=== PATIENT | female | born 1960 | race Hispanic/Latino ===

== ENCOUNTER → 2021-04-12 | Outpatient (CLI) | payer MEDICARE ==
[2021-04-11 10:26] LABS: HEMOGLOBIN 9.8 g/dL (12.0-16.0)
[2021-04-11 10:45] LABS: INR 0.87; PROTHROMBIN TIME 12.5 seconds (11.9-14.5)
[2021-04-11 10:46] LABS: PARTIAL THROMBOPLASTIN TIME 41.4 seconds (23.8-35.5)
[2021-04-12] VITALS (9 sets, daily range): BP systolic 125–157; BP diastolic 53–88
[~2021-04-12] MED LIST: CEFTRIAXONE 1 GM VIAL ONE; CEFTRIAXONE SOD 1 GM/50 ML BAG IV ONE; FENTANYL CITRATE/PF 100MCG/2 ML INJ ONE; IOPAMIDOL 300MG/ML 50ML INFUS..BTL IV ONE; LIDOCAINE HCL 2% LOCAL 20 ML VIAL ONE; MIDAZOLAM HCL 2 MG/2 ML VIAL ONE; SODIUM CHLORIDE 0.9% 500ML 1,000 ML ONE; SODIUM CHLORIDE 0.9% 50ML 50 ML ONE
== END ==
LOC: DX 07:51
PROVIDERS: ATTEND Urology
DX: Z43.6 Encounter for attention to other artificial openings of urinary tract (principal); Z20.822 Contact with and (suspected) exposure to COVID-19
CPT/HCPCS: 36415; 50389; 76942; 85014; 85049; 85610; 85730; J0696; J2001; J2250; J3010; J7040; Q9967; U0002; 50433

== ENCOUNTER → 2021-11-01 | Outpatient (CLI) | payer MEDICARE ==
[~2021-11-01] MED LIST changes: -CEFTRIAXONE 1 GM VIAL ONE; -CEFTRIAXONE SOD 1 GM/50 ML BAG IV ONE; +IOPAMIDOL 300MG/ML 100 ML INFUS..BTL IV ONE; -IOPAMIDOL 300MG/ML 50ML INFUS..BTL IV ONE; +LIDOCAINE HCL 1% LOCAL INJ 20 ML VIAL ONE; -LIDOCAINE HCL 2% LOCAL 20 ML VIAL ONE; +SODIUM CHLORIDE 0.9% 250ML 250 ML ONE; -SODIUM CHLORIDE 0.9% 500ML 1,000 ML ONE; -SODIUM CHLORIDE 0.9% 50ML 50 ML ONE
== END ==
LOC: DX 09:00
PROVIDERS: ATTEND Urology
DX: N13.30 Unspecified hydronephrosis (principal); Z20.822 Contact with and (suspected) exposure to COVID-19
CPT/HCPCS: 50431; C1769; C2625; J2001; J2250; J3010; J7050; Q9967; U0002; 50387; 99152; 99153

== ENCOUNTER 2021-11-22 11:51 | Emergency (ER) | payer MEDICARE ==
[~2021-11-22] VITALS: Ht 149.9 cm; Wt 77.1 kg
[2021-11-22 12:24] LABS: BASOPHILS % 0.1 % (0.0-1.0); HEMATOCRIT 34.9 % (34.2-44.1); LYMPHOCYTES # (AUTO) 1.1 (1.0-3.2); LYMPHOCYTES % 8.5 % (18.0-39.1); MEAN CORPUSCULAR HEMOGLOBIN 25.8 pg (28-32); MEAN CORPUSCULAR HGB CONC 31.5 g/dL (31-35); MEAN CORPUSCULAR VOLUME 81.9 fL (81-99); MONOCYTES # (AUTO) 0.4 (0.2-0.8); MONOCYTES % 2.7 % (4.4-11.3); NEUTROPHILS # (AUTO) 11.9 (2.1-6.9); NEUTROPHILS % 88.3 % (38.7-80.0); PLATELET COUNT 403 x10e3/uL (140-360); RED BLOOD COUNT 4.26 x10e6/uL (3.6-5.1); RED CELL DISTRIBUTION WIDTH 16.5 % (11.7-14.4)
[2021-11-22 12:32] LABS: ANION GAP 16.6 mmol/L (8-16); BLOOD UREA NITROGEN 30 mg/dL (7-26); BUN/CREATININE RATIO 19 (6-25); CALCIUM 8.9 mg/dL (8.4-10.2); CARBON DIOXIDE 21 mmol/L (22-29); CHLORIDE 107 mmol/L (98-107); GLUCOSE 111 mg/dL (74-118); POTASSIUM 4.6 mmol/L (3.5-5.1); SODIUM 140 mmol/L (136-145)
[2021-11-22 12:45] LABS: CLARITY,URINE TURBID (CLEAR); COLOR,URINE YELLOW (YELLOW); KETONES,URINE NEGATIVE (NEGATIVE); NITRITE,URINE NEGATIVE (NEGATIVE); PROTEIN,URINE DIPSTICK 1+ (NEGATIVE); URINE UROBILINOGEN 0.2 mg/dL (0.2 - 1)
[2021-11-22 12:46] LABS: BACTERIA,URINE FEW /HPF; EPITHELIAL CELLS,URINE FEW /LPF; LEUKOCYTE ESTERASE ,URINE LARGE (NEGATIVE); RBC,URINE >50 /HPF (0-5); WBC,URINE (MAN) >50 /HPF (0-5)
[2021-11-22] MEDS ORDERED: IOPAMIDOL 300MG/ML 100 ML INFUS..BTL IV ONE (13:09)
[2021-11-22] MEDS ORDERED: SODIUM CHLORIDE 0.9% 250ML 0 ML ONE (13:09)
[2021-11-22] MEDS ORDERED: CEFDINIR300 MG PO (13:29)
== END 2021-11-22 14:12 | disposition home or self-care (01) ==
LOC: ER 12:24
DX: Z43.6 Encounter for attention to other artificial openings of urinary tract (principal); N39.0 Urinary tract infection, site not specified; I10 Essential (primary) hypertension; E11.9 Type 2 diabetes mellitus without complications; E03.9 Hypothyroidism, unspecified; K21.9 Gastro-esophageal reflux disease without esophagitis; Z86.79 Personal history of other diseases of the circulatory system; Z85.89 Personal history of malignant neoplasm of other organs and systems
CPT/HCPCS: 0223U; 36415; 74176; 74470; 80048; 81001; 85025; 87086; 87186; 99284; J7050; Q9967

== ENCOUNTER → 2022-01-08 | Day surgery (SDC) | payer MEDICARE ==
[~2022-01-08] VITALS: Ht 149.9 cm; Wt 77.1 kg
[~2022-01-08] MED LIST changes: +CEFDINIR300 MG PO; +GENTAMICIN 120MG/NS 100ML 100 ML IV ONE
[2022-01-08 09:44] LABS: COLOR,URINE YELLOW (YELLOW)
[2022-01-08 09:45] LABS: CLARITY,URINE HAZY (CLEAR); KETONES,URINE NEGATIVE (NEGATIVE); LEUKOCYTE ESTERASE ,URINE SMALL (NEGATIVE); NITRITE,URINE POSITIVE (NEGATIVE); PROTEIN,URINE DIPSTICK 2+ (NEGATIVE); URINE UROBILINOGEN 0.2 mg/dL (0.2 - 1)
[2022-01-08 10:01] LABS: WBC,URINE (MAN) >50 /HPF (0-5)
[2022-01-08 10:02] LABS: BACTERIA,URINE MANY /HPF; EPITHELIAL CELLS,URINE MODERATE /LPF; RENAL EPITHELIAL CELLS,URINE RARE
[2022-01-08 10:59] LABS: BASOPHILS % 0.7 % (0.0-1.0); EOSINOPHILS % 0.7 % (0.0-6.0); HEMATOCRIT 27.7 % (34.2-44.1); HEMOGLOBIN 8.6 g/dL (12.0-16.0); LYMPHOCYTES % 22.9 % (18.0-39.1); MEAN CORPUSCULAR HEMOGLOBIN 27.3 pg (28-32); MEAN CORPUSCULAR VOLUME 87.9 fL (81-99); MONOCYTES # (AUTO) 0.2 (0.2-0.8); MONOCYTES % 3.8 % (4.4-11.3); NEUTROPHILS # (AUTO) 3.2 (2.1-6.9); NEUTROPHILS % 71.2 % (38.7-80.0); PLATELET COUNT 218 x10e3/uL (140-360); RED BLOOD COUNT 3.15 x10e6/uL (3.6-5.1); RED CELL DISTRIBUTION WIDTH 20.7 % (11.7-14.4)
[2022-01-08 11:14] LABS: INR 0.83; PROTHROMBIN TIME 12.2 seconds (11.9-14.5)
[2022-01-08 11:21] LABS: ALBUMIN 3.5 g/dL (3.5-5.0); ALBUMIN/GLOBULIN RATIO 0.9 (0.8-2.0); ANION GAP 15.9 mmol/L (8-16); CALCIUM 8.7 mg/dL (8.4-10.2); CREATININE, SERUM 1.62 mg/dL (0.57-1.11); POTASSIUM 4.9 mmol/L (3.5-5.1)
[2022-01-08 12:38] LABS: EOSINOPHILS % (MANUAL) 3 % (0-7); LYMPHOCYTES % (MANUAL) 22 % (19-48); METAMYELOCYTES % (MANUAL) 1 % (0-0); MONOCYTES % (MANUAL) 3 % (3.4-9.0); NEUTROPHILS % (MANUAL) 69 % (40-74)
[2022-01-08 12:39] LABS: ANISOCYTOSIS SLIGHT; PLATELET ESTIMATE ADEQUATE; PLATELET MORPHOLOGY COMMENT NORMAL
== END | disposition home or self-care (01) ==
LOC: ER 08:49 → OR 12:00 → ER 13:55
PROVIDERS: ATTEND Radiology Vascular & Interventional Radiology
DX: N13.5 Crossing vessel and stricture of ureter without hydronephrosis (principal); N39.0 Urinary tract infection, site not specified; C56.9 Malignant neoplasm of unspecified ovary; I10 Essential (primary) hypertension; E11.9 Type 2 diabetes mellitus without complications; E03.9 Hypothyroidism, unspecified; Z79.899 Other long term (current) drug therapy
CPT/HCPCS: 36415; 50431; 50435; 74176; 74470; 80053; 81001; 85025; 85610; 87086; 87186; 99284; C1769; J1580; J2001; J2250; J3010; J7050; Q9967; 50387; 99152; 99153

== ENCOUNTER 2022-04-16 10:35 | Emergency (ER) | payer MEDICARE ==
[~2022-04-16] VITALS: Ht 149.9 cm; Wt 77.1 kg
[~2022-04-16 10:35] MED LIST changes: -FENTANYL CITRATE/PF 100MCG/2 ML INJ ONE; -GENTAMICIN 120MG/NS 100ML 100 ML IV ONE; -IOPAMIDOL 300MG/ML 100 ML INFUS..BTL IV ONE; -LIDOCAINE HCL 1% LOCAL INJ 20 ML VIAL ONE; -MIDAZOLAM HCL 2 MG/2 ML VIAL ONE; -SODIUM CHLORIDE 0.9% 250ML 250 ML ONE
[2022-04-16] MEDS ORDERED: DIPHENHYDRAMINE HCL INJ 50 MG/ML VIAL IV STA (10:39)
[2022-04-16] MEDS ORDERED: IOPAMIDOL 300MG/ML 100 ML INFUS..BTL IV ONE (12:21)
[2022-04-16] MEDS ORDERED: LIDOCAINE HCL 1% LOCAL INJ 20 ML VIAL ONE (12:22)
[2022-04-16] MEDS ORDERED: SODIUM CHLORIDE 0.9% 250ML 250 ML ONE ×2 (12:22→12:48)
== END 2022-04-16 13:43 | disposition home or self-care (01) ==
LOC: ER 10:40
DX: N99.528 Other complication of incontinent external stoma of urinary tract (principal); I10 Essential (primary) hypertension; E11.9 Type 2 diabetes mellitus without complications; E03.9 Hypothyroidism, unspecified; Y83.8 Other surgical procedures as the cause of abnormal reaction of the patient, or of later complication, without mention of misadventure at the time of the procedure; Z85.43 Personal history of malignant neoplasm of ovary; Z87.440 Personal history of urinary (tract) infections
CPT/HCPCS: 50431; 50435; 74470; 99284; J2001; J7050; Q9967; 50387; C1769; C2625

== ENCOUNTER → 2022-06-04 | Outpatient (CLI) | payer MEDICARE ==
[~2022-06-04] MED LIST changes: +IOPAMIDOL 300MG/ML 50ML INFUS..BTL IV ONE; +LIDOCAINE 1% 10 ML MULTIDOSE VIAL IJ ONE; +SODIUM CHLORIDE 0.9% 250ML 250 ML ONE
== END ==
LOC: DX 13:16
PROVIDERS: ATTEND Urology
DX: N13.30 Unspecified hydronephrosis (principal)
CPT/HCPCS: 50431; C1769; J7050; Q9967; 50387

== ENCOUNTER 2022-08-16 17:21 | Emergency (ER) | payer MEDICARE ==
[~2022-08-16] VITALS: Ht 149.9 cm; Wt 77.1 kg
[~2022-08-16 17:21] MED LIST changes: -IOPAMIDOL 300MG/ML 50ML INFUS..BTL IV ONE; -LIDOCAINE 1% 10 ML MULTIDOSE VIAL IJ ONE; -SODIUM CHLORIDE 0.9% 250ML 250 ML ONE
[2022-08-16 18:21] LABS: CLARITY,URINE CLEAR (CLEAR); COLOR,URINE YELLOW (YELLOW); KETONES,URINE NEGATIVE (NEGATIVE); LEUKOCYTE ESTERASE ,URINE 1+ (NEGATIVE); NITRITE,URINE POSITIVE (NEGATIVE); PROTEIN,URINE DIPSTICK 1+ (NEGATIVE); URINE UROBILINOGEN 0.2 mg/dL (0.2 - 1)
[2022-08-16 18:25] LABS: BACTERIA,URINE MANY /HPF; EPITHELIAL CELLS,URINE FEW /LPF; TRANSITIONAL EPI CELLS,URINE FEW; WBC,URINE (MAN) >50 /HPF (0-5)
[2022-08-16 18:26] LABS: RBC,URINE 21-50 /HPF (0-5)
[2022-08-16] MEDS ORDERED: CEFDINIR300 MG PO (18:52)
== END 2022-08-16 18:57 | disposition home or self-care (01) ==
LOC: ER 17:35
DX: R30.0 Dysuria (principal); N39.0 Urinary tract infection, site not specified; R10.30 Lower abdominal pain, unspecified; I10 Essential (primary) hypertension; E11.9 Type 2 diabetes mellitus without complications; E03.9 Hypothyroidism, unspecified; K21.9 Gastro-esophageal reflux disease without esophagitis; Z85.43 Personal history of malignant neoplasm of ovary
CPT/HCPCS: 81001; 87086; 99283

== ENCOUNTER → 2022-08-26 | Outpatient (CLI) | payer MEDICARE ==
[~2022-08-26] MED LIST changes: +CEFTRIAXONE 1 GM VIAL ONE; +FENTANYL CITRATE/PF 100MCG/2 ML INJ ONE; +LIDOCAINE HCL 1% 30ML-PF VIAL ONE; +SODIUM CHLORIDE 0.9% 100 ML ONE; +SODIUM CHLORIDE 0.9% 250ML 250 ML ONE
== END ==
LOC: DX 13:07
PROVIDERS: ATTEND Urology
DX: N13.30 Unspecified hydronephrosis (principal)
CPT/HCPCS: 50431; C2625; J0696; J2001; J3010; J7050 ×2; 50387

== ENCOUNTER 2022-10-21 09:28 | Observation (INO) | payer MEDICARE ==
[~2022-10-21] VITALS: Ht 149.9 cm; Wt 77.1 kg
[~2022-10-21 09:28] MED LIST changes: -CEFTRIAXONE 1 GM VIAL ONE; -FENTANYL CITRATE/PF 100MCG/2 ML INJ ONE; -LIDOCAINE HCL 1% 30ML-PF VIAL ONE; -SODIUM CHLORIDE 0.9% 100 ML ONE; -SODIUM CHLORIDE 0.9% 250ML 250 ML ONE
[2022-10-21 11:14] LABS: BASOPHILS % 0.7 % (0.0-1.0); EOSINOPHILS % 0.7 % (0.0-6.0); HEMOGLOBIN 9.4 g/dL (12.0-16.0); LYMPHOCYTES # (AUTO) 1.3 (1.0-3.2); LYMPHOCYTES % 28.7 % (18.0-39.1); MEAN CORPUSCULAR HEMOGLOBIN 30.9 pg (28-32); MEAN CORPUSCULAR HGB CONC 32.4 g/dL (31-35); MEAN CORPUSCULAR VOLUME 95.4 fL (81-99); MONOCYTES # (AUTO) 0.8 (0.2-0.8); MONOCYTES % 18.2 % (4.4-11.3); NEUTROPHILS # (AUTO) 2.3 (2.1-6.9); PLATELET COUNT 271 x10e3/uL (140-360); RED BLOOD COUNT 3.04 x10e6/uL (3.6-5.1); RED CELL DISTRIBUTION WIDTH 13.8 % (11.7-14.4)
[2022-10-21 11:31] LABS: INR 0.86; PROTHROMBIN TIME 12.2 seconds (11.9-14.5)
[2022-10-21 11:32] LABS: PARTIAL THROMBOPLASTIN TIME 34.8 seconds (23.8-35.5)
[2022-10-21 11:39] LABS: ALBUMIN 3.6 g/dL (3.5-5.0); ALBUMIN/GLOBULIN RATIO 1.1 (0.8-2.0); ANION GAP 14.3 mmol/L (8-16); CALCIUM 8.9 mg/dL (8.4-10.2); CREATININE, SERUM 1.88 mg/dL (0.57-1.11); POTASSIUM 4.3 mmol/L (3.5-5.1)
[2022-10-21] MEDS ORDERED: SODIUM CHLORIDE 0.9% 1000ML 1,000 ML IV SCH (12:15)
[2022-10-21] MEDS ORDERED: ONDANSETRON HCL INJ 2MG/ML 2ML 2 MG/ML VIAL IV PRN (12:15)
[2022-10-21 13:46] LABS: CLARITY,URINE SL CLOUDY (CLEAR); COLOR,URINE YELLOW (YELLOW); KETONES,URINE NEGATIVE (NEGATIVE); LEUKOCYTE ESTERASE ,URINE SMALL (NEGATIVE); NITRITE,URINE POSITIVE (NEGATIVE); PROTEIN,URINE DIPSTICK 2+ (NEGATIVE); URINE UROBILINOGEN 0.2 mg/dL (0.2 - 1)
[2022-10-21 13:50] LABS: WBC,URINE (MAN) 21-50 /HPF (0-5)
[2022-10-21 13:51] LABS: BACTERIA,URINE FEW /HPF; EPITHELIAL CELLS,URINE RARE /LPF
[2022-10-21 14:00] VITALS: BP 124/77; PULSE 62; RESP 20; TEMP 98.4; O2SAT 98
[2022-10-21] MEDS: SODIUM CHLORIDE 0.9% 1000ML 1,000 ML IV SCH ×2 (14:15→23:45)
[2022-10-21 14:49] VITALS: BP 124/77; PULSE 75; RESP 18; TEMP 98.2; O2SAT 98
[2022-10-21 14:56] VITALS: BP 124/77; PULSE 66; RESP 18; TEMP 98.5; O2SAT 98
[2022-10-21 17:49] VITALS: BP 124/77; PULSE 66; RESP 20; TEMP 98.5; O2SAT 99
[2022-10-21 20:00] VITALS: BP 126/54; PULSE 62; RESP 20; TEMP 97.7; O2SAT 100
[2022-10-21 20:21] VITALS: BP 126/54; PULSE 62; RESP 19; TEMP 97.7; O2SAT 100
[2022-10-21] MEDS ORDERED: TRADJENTA5 MG PO (23:05)
[2022-10-21] MEDS ORDERED: CRESTOR10 MG PO (23:07)
[2022-10-21] MEDS ORDERED: INDERAL XL80 MG PO (23:13)
[2022-10-21] MEDS ORDERED: HYDRALAZINE HCL50 MG PO (23:15)
[2022-10-21] MEDS ORDERED: OXYBUTYNIN CHLOR5 M1 PO (23:16)
[2022-10-21] MEDS ORDERED: GABAPENTIN300 MG PO (23:17)
[2022-10-21] MEDS ORDERED: AMLODIPINE BESY10 MG PO (23:18)
[2022-10-21] MEDS ORDERED: LEVOTHYROXINE75 MCG PO (23:20)
[2022-10-21] MEDS ORDERED: MORPHINE SULFAT30 M2 PO (23:22)
[2022-10-22 00:34] VITALS: BP 170/61; PULSE 65; RESP 19; TEMP 98.4; O2SAT 100
[2022-10-22 04:23] VITALS: BP 156/64; PULSE 65; RESP 17; TEMP 98; O2SAT 98
[2022-10-22 05:23] LABS: BASOPHILS % 0.8 % (0.0-1.0); EOSINOPHILS % 0.8 % (0.0-6.0); HEMATOCRIT 29.7 % (34.2-44.1); HEMOGLOBIN 9.4 g/dL (12.0-16.0); LYMPHOCYTES # (AUTO) 1.4 (1.0-3.2); LYMPHOCYTES % 27.6 % (18.0-39.1); MEAN CORPUSCULAR HEMOGLOBIN 30.9 pg (28-32); MEAN CORPUSCULAR HGB CONC 31.6 g/dL (31-35); MEAN CORPUSCULAR VOLUME 97.7 fL (81-99); MONOCYTES # (AUTO) 0.6 (0.2-0.8); MONOCYTES % 12.2 % (4.4-11.3); NEUTROPHILS % 58.2 % (38.7-80.0); PLATELET COUNT 251 x10e3/uL (140-360); RED BLOOD COUNT 3.04 x10e6/uL (3.6-5.1); RED CELL DISTRIBUTION WIDTH 13.7 % (11.7-14.4)
[2022-10-22 05:47] LABS: ALBUMIN 3.6 g/dL (3.5-5.0); ALBUMIN/GLOBULIN RATIO 1.1 (0.8-2.0); ANION GAP 14.1 mmol/L (8-16); CALCIUM 8.9 mg/dL (8.4-10.2); CREATININE, SERUM 1.46 mg/dL (0.57-1.11); POTASSIUM 4.1 mmol/L (3.5-5.1)
[2022-10-22] MEDS: SODIUM CHLORIDE 0.9% 1000ML 1,000 ML IV SCH (06:54)
[2022-10-22 08:00] VITALS: BP 156/64; PULSE 65; RESP 17; TEMP 98; O2SAT 98
[2022-10-22 08:44] VITALS: BP 161/64; PULSE 61; RESP 19; TEMP 98.5; O2SAT 98
[2022-10-22 09:00] VITALS: BP 161/64; PULSE 61; RESP 19; TEMP 98.5; O2SAT 98
[2022-10-22 11:30] VITALS: BP 135/52; PULSE 62; RESP 19; TEMP 98.4; O2SAT 100
[2022-10-22] MEDS ORDERED: SODIUM CHLORIDE 0.9% 250ML 250 ML ONE (11:31)
[2022-10-22] MEDS ORDERED: IOPAMIDOL 370 MG/ML 100 ML INFUS..BTL INJ ONE (11:31)
[2022-10-22] MEDS ORDERED: LIDOCAINE HCL 1% LOCAL INJ 20 ML VIAL ONE (11:31)
[2022-10-22] MEDS ORDERED: FENTANYL CITRATE/PF 100MCG/2 ML INJ ONE (12:20)
[2022-10-22] MEDS ORDERED: MORPHINE SULFATE IR 15 MG TABLET PO PRN (14:00)
[2022-10-22] MEDS ORDERED: HYDRALAZINE HCL 25 MG TAB PO SCH (15:00)
[2022-10-22] MEDS ORDERED: GABAPENTIN 300 MG CAP PO SCH (15:00)
[2022-10-22] MEDS ORDERED: NON-FORMULARY MEDICATION (Hydralazine Hcl* 50 MG) PO SCH (15:00)
[2022-10-23] MEDS ORDERED: LEVOTHYROXINE SODIUM 75 MCG TAB PO SCH (06:00)
[2022-10-23] MEDS ORDERED: PROPRANOLOL HCL 60 MG ER CAP PO SCH (09:00)
[2022-10-23] MEDS ORDERED: OXYBUTYNIN CHLORIDE XL 5 MG TAB PO SCH (09:00)
[2022-10-23] MEDS ORDERED: PROPRANOLOL HCL 120 MG PO SCH (09:00)
[2022-10-23] MEDS ORDERED: AMLODIPINE BESYLATE 10 MG TAB PO SCH (09:00)
[2022-10-23] MEDS ORDERED: (Linagliptin (Tradjenta) 5 MG) PO SCH (09:00)
[2022-10-23] MEDS ORDERED: SIMVASTATIN 20 MG TAB PO SCH (21:00)
== END 2022-10-22 15:12 | disposition home or self-care (01) ==
LOC: ER 09:34 → ERHOLD 12:16 → MED/SURG2 13:42
PROVIDERS: ADMIT Internal Medicine; ATTEND Internal Medicine
DX: N99.522 Malfunction of incontinent external stoma of urinary tract (principal); N13.5 Crossing vessel and stricture of ureter without hydronephrosis; I12.9 Hypertensive chronic kidney disease with stage 1 through stage 4 chronic kidney disease, or unspecified chronic kidney disease; N18.9 Chronic kidney disease, unspecified; E03.9 Hypothyroidism, unspecified; E66.9 Obesity, unspecified; Z20.822 Contact with and (suspected) exposure to COVID-19; Z79.899 Other long term (current) drug therapy; Z87.440 Personal history of urinary (tract) infections; Z85.43 Personal history of malignant neoplasm of ovary
CPT/HCPCS: 36415 ×2; 50435; 74470; 80053 ×2; 81001; 82948 ×2; 85025 ×2; 85610; 85730; 99284; C1769; C2625; G0378 ×2; J2001; J3010; J7030; J7050; Q9967; U0002; 50387; 50431

== ENCOUNTER → 2023-12-16 | Day surgery (SDC) | payer MEDICARE ==
[~2023-12-16] MED LIST changes: +AMLODIPINE BESY10 MG PO; +CEFTRIAXONE 1 GM VIAL ONE; +CEFUROXIME500 MG PO; +CRESTOR10 MG PO; +FENTANYL CITRATE/PF 100MCG/2 ML INJ ONE; +GABAPENTIN300 MG PO; +GEMTESA75 MG PO; +GENTAMICIN 80MG/NS 100 ML 200 ML IV ONE; +HYDRALAZINE HC100 MG PO; +HYDRALAZINE HCL50 MG PO; +INDERAL XL80 MG PO; +IOPAMIDOL 610MG/1ML 300 MG/ML VIAL IV ONE; +LACTATED RINGER'S 1,000 ML ONE; +LEVOTHYROXINE75 MCG PO; +LIDOCAINE HCL 2% LOCAL INJ 5 ML SDV VIAL INJ ONE; +MIDAZOLAM HCL 2 MG/2 ML VIAL ONE; +MORPHINE PO; +MORPHINE SULFAT30 M2 PO; +ONDANSETRON HCL INJ 2MG/ML 2ML 2 MG/ML VIAL ONE; +OXYBUTYNIN CHLOR5 M1 PO; +PHENAZOPYRIDINE HCL 100 MG TAB ONE; +PROPOFOL IV EMULSION 10 MG/ML 20 ML VIAL ONE; +PROPRANOLOL HCL40 MG PO; +PYRIDIUM100 MG PO; +ROCURONIUM BROMIDE 10 MG/ML 5ML VIAL IV ONE; +SEVOFLURANE INHAL SOLN 250 ML PEN BTL ONE; +TRADJENTA5 MG PO; +TYLENOL EXTRA500 MG PO; +VESICARE5 MG PO; +VITAMIN D31250 MCG PO
[2023-12-16 10:04] LABS: BASOPHILS # (AUTO) 0.1 (0.0-0.1); BASOPHILS % 0.3 % (0.0-1.0); EOSINOPHILS # (AUTO) 0.3 (0.0-0.4); EOSINOPHILS % 1.1 % (0.0-6.0); HEMATOCRIT 30.2 % (34.2-44.1); LYMPHOCYTES # (AUTO) 2.2 (1.0-3.2); LYMPHOCYTES % 9.5 % (18.0-39.1); MEAN CORPUSCULAR HEMOGLOBIN 28.9 pg (28-32); MEAN CORPUSCULAR HGB CONC 29.8 g/dL (31-35); MEAN CORPUSCULAR VOLUME 97.1 fL (81-99); MONOCYTES # (AUTO) 1.4 (0.2-0.8); NEUTROPHILS # (AUTO) 19.3 (2.1-6.9); NEUTROPHILS % 82.6 % (38.7-80.0); PLATELET COUNT 569 x10e3/uL (140-360); RED BLOOD COUNT 3.11 x10e6/uL (3.6-5.1); RED CELL DISTRIBUTION WIDTH 14.7 % (11.7-14.4); WHITE BLOOD COUNT 23.33 x10e3/uL (4.8-10.8)
[2023-12-16 10:28] LABS: ALBUMIN/GLOBULIN RATIO 0.6 (0.8-2.0); ANION GAP 15.6 mmol/L (8-16); BILIRUBIN,TOTAL 0.3 mg/dL (0.2-1.2); CALCIUM 9.8 mg/dL (8.4-10.2); CREATININE, SERUM 2.19 mg/dL (0.57-1.11); POTASSIUM 3.6 mmol/L (3.5-5.1); TOTAL PROTEIN 8.3 g/dL (6.5-8.1)
[2023-12-16] MEDS: PHENAZOPYRIDINE HCL 100 MG TAB PO ONE (15:30)
[2023-12-16 16:00] VITALS: BP 152/60; PULSE 68; RESP 18; O2SAT 99
[2023-12-16] MEDS: ACETAMINOPHEN/CODEINE 300MG - 30MG TAB ONE (16:08)
== END | disposition home or self-care (01) ==
LOC: OR 09:14
PROVIDERS: ATTEND Urology
DX: Z46.6 Encounter for fitting and adjustment of urinary device (principal); N13.5 Crossing vessel and stricture of ureter without hydronephrosis; N13.30 Unspecified hydronephrosis; N81.10 Cystocele, unspecified; N81.6 Rectocele; N95.2 Postmenopausal atrophic vaginitis; N39.0 Urinary tract infection, site not specified; C80.1 Malignant (primary) neoplasm, unspecified; I10 Essential (primary) hypertension; E11.9 Type 2 diabetes mellitus without complications; E03.9 Hypothyroidism, unspecified; K21.9 Gastro-esophageal reflux disease without esophagitis; Z79.84 Long term (current) use of oral hypoglycemic drugs; Z79.891 Long term (current) use of opiate analgesic; Z79.899 Other long term (current) drug therapy; Z86.73 Personal history of transient ischemic attack (TIA), and cerebral infarction without residual deficits; Z87.891 Personal history of nicotine dependence
CPT/HCPCS: 36415; 52332; 52344; 71046; 74420; 80053; 82948; 85025; 87086; 87186; 93005; C1758; C1769; C2617; J0696; J1580; J2001; J2250; J2405; J2704; J3010; J7121; Q9967

== ENCOUNTER 2024-02-11 15:35 | Inpatient (IN) | payer MEDICARE ==
[~2024-02-11] VITALS: Ht 149.9 cm; Wt 59.9 kg
[~2024-02-11 15:35] MED LIST changes: -CEFTRIAXONE 1 GM VIAL ONE; -FENTANYL CITRATE/PF 100MCG/2 ML INJ ONE; -GENTAMICIN 80MG/NS 100 ML 200 ML IV ONE; -IOPAMIDOL 610MG/1ML 300 MG/ML VIAL IV ONE; -LACTATED RINGER'S 1,000 ML ONE; -LIDOCAINE HCL 2% LOCAL INJ 5 ML SDV VIAL INJ ONE; -MIDAZOLAM HCL 2 MG/2 ML VIAL ONE; -ONDANSETRON HCL INJ 2MG/ML 2ML 2 MG/ML VIAL ONE; -PHENAZOPYRIDINE HCL 100 MG TAB ONE; -PROPOFOL IV EMULSION 10 MG/ML 20 ML VIAL ONE; -ROCURONIUM BROMIDE 10 MG/ML 5ML VIAL IV ONE; -SEVOFLURANE INHAL SOLN 250 ML PEN BTL ONE
[2024-02-11 16:13] LABS: BASOPHILS % 0.2 % (0.0-1.0); EOSINOPHILS # (AUTO) 0.2 (0.0-0.4); EOSINOPHILS % 1.2 % (0.0-6.0); HEMATOCRIT 25.2 % (34.2-44.1); HEMOGLOBIN 7.3 g/dL (12.0-16.0); LYMPHOCYTES # (AUTO) 1.8 (1.0-3.2); LYMPHOCYTES % 9.4 % (18.0-39.1); MEAN CORPUSCULAR HEMOGLOBIN 27.3 pg (28-32); MEAN CORPUSCULAR VOLUME 94.4 fL (81-99); MONOCYTES # (AUTO) 1.3 (0.2-0.8); NEUTROPHILS # (AUTO) 15.6 (2.1-6.9); NEUTROPHILS % 81.6 % (38.7-80.0); PLATELET COUNT 486 x10e3/uL (140-360); RED BLOOD COUNT 2.67 x10e6/uL (3.6-5.1); RED CELL DISTRIBUTION WIDTH 16.4 % (11.7-14.4)
[2024-02-11 16:39] LABS: ALBUMIN 2.5 g/dL (3.5-5.0); ALBUMIN/GLOBULIN RATIO 0.5 (0.8-2.0); ANION GAP 14.6 mmol/L (8-16); BILIRUBIN,TOTAL 0.3 mg/dL (0.2-1.2); CALCIUM 9.1 mg/dL (8.4-10.2); CREATININE, SERUM 2.46 mg/dL (0.57-1.11); POTASSIUM 4.6 mmol/L (3.5-5.1); TOTAL PROTEIN 7.3 g/dL (6.5-8.1)
[2024-02-11 16:58] LABS: INR 1.01; PROTHROMBIN TIME 13.8 seconds (11.9-14.5)
[2024-02-11] MEDS: HYDROCODONE/APAP 10MG-325MG TAB PO PRN (20:10)
[2024-02-11] MEDS: SODIUM CHLORIDE 0.9% 1000ML 1,000 ML IV SCH (20:10)
[2024-02-11 20:12] VITALS: PULSE 76; RESP 18; O2SAT 100
[2024-02-11 20:39] LABS: BILIRUBIN,URINE MODERATE (NEGATIVE); CLARITY,URINE TURBID (CLEAR); COLOR,URINE YELLOW (YELLOW); GLUCOSE, URINE NEGATIVE (NEGATIVE); KETONES,URINE NEGATIVE (NEGATIVE); LEUKOCYTE ESTERASE ,URINE LARGE (NEGATIVE); NITRITE,URINE NEGATIVE (NEGATIVE); PH,URINE 8.5 (5 - 7); PROTEIN,URINE DIPSTICK >=300 (NEGATIVE); URINE UROBILINOGEN 1 mg/dL (0.2 - 1)
[2024-02-11 20:54] LABS: AMORPHOUS SEDIMENT,URINE MODERATE (FEW); BACTERIA,URINE MODERATE /HPF; WBC,URINE (MAN) 21-50 /HPF (0-5)
[2024-02-12 05:24] LABS: BASOPHILS # (AUTO) 0.1 (0.0-0.1); BASOPHILS % 0.4 % (0.0-1.0); EOSINOPHILS # (AUTO) 0.3 (0.0-0.4); EOSINOPHILS % 1.5 % (0.0-6.0); LYMPHOCYTES # (AUTO) 1.4 (1.0-3.2); LYMPHOCYTES % 7.8 % (18.0-39.1); MEAN CORPUSCULAR HEMOGLOBIN 27.5 pg (28-32); MEAN CORPUSCULAR HGB CONC 29.3 g/dL (31-35); MEAN CORPUSCULAR VOLUME 94.1 fL (81-99); MONOCYTES # (AUTO) 1.1 (0.2-0.8); NEUTROPHILS # (AUTO) 15.1 (2.1-6.9); NEUTROPHILS % 83.7 % (38.7-80.0); PLATELET COUNT 570 x10e3/uL (140-360); RED BLOOD COUNT 2.36 x10e6/uL (3.6-5.1); RED CELL DISTRIBUTION WIDTH 16.6 % (11.7-14.4); WHITE BLOOD COUNT 18.02 x10e3/uL (4.8-10.8)
[2024-02-12 05:41] LABS: ANION GAP 15.1 mmol/L (8-16); CALCIUM 8.7 mg/dL (8.4-10.2); CREATININE, SERUM 2.34 mg/dL (0.57-1.11); POTASSIUM 4.1 mmol/L (3.5-5.1)
[2024-02-12 05:44] LABS: HEMATOCRIT 22.2 % (34.2-44.1)
[2024-02-12 05:45] LABS: HEMOGLOBIN 6.5 g/dL (12.0-16.0)
[2024-02-12 07:43] VITALS: PULSE 62; RESP 15; O2SAT 100
[2024-02-12] MEDS ORDERED: LIDOCAINE HCL 1% LOCAL INJ 20 ML VIAL ONE (08:54)
[2024-02-12] MEDS ORDERED: IOPAMIDOL 370 MG/ML 100 ML INFUS..BTL INJ ONE (08:55)
[2024-02-12] MEDS ORDERED: SODIUM CHLORIDE 0.9% 500ML 500 ML ONE (08:55)
[2024-02-12] MEDS ORDERED: SODIUM CHLORIDE 0.9% 250ML 250 ML ONE ×3 (09:25→18:31)
[2024-02-12] MEDS ORDERED: MIDAZOLAM HCL 2 MG/2 ML VIAL ONE (09:25)
[2024-02-12] MEDS ORDERED: FENTANYL CITRATE/PF 100MCG/2 ML INJ ONE (09:25)
[2024-02-12] MEDS: SODIUM CHLORIDE 0.9% 250ML 250 ML IV ONE (13:15)
[2024-02-12 14:14] VITALS: PULSE 60; RESP 16; O2SAT 100
[2024-02-12 15:50] VITALS: PULSE 66; RESP 16; TEMP 97.7
[2024-02-12] MEDS: FUROSEMIDE INJ 10 MG/ML 2 ML VIAL IV PRN (16:07)
[2024-02-12 20:55] VITALS: BP 132/54; PULSE 66; RESP 18; TEMP 97.6; O2SAT 100
[2024-02-12] MEDS: Morphine 4mg INJECTION 4 MG/ML INJ IV PRN (21:27)
[2024-02-13] VITALS (8 sets, daily range): BP systolic 110–142; BP diastolic 42–51; PULSE 55–74; RESP 17–20; TEMP 97.6–98.8; O2SAT 97–100
[2024-02-13 07:38] LABS: BASOPHILS # (AUTO) 0.1 (0.0-0.1); BASOPHILS % 0.4 % (0.0-1.0); EOSINOPHILS # (AUTO) 0.3 (0.0-0.4); HEMATOCRIT 31.2 % (34.2-44.1); HEMOGLOBIN 9.6 g/dL (12.0-16.0); LYMPHOCYTES # (AUTO) 1.4 (1.0-3.2); LYMPHOCYTES % 10.1 % (18.0-39.1); MEAN CORPUSCULAR HEMOGLOBIN 28.2 pg (28-32); MEAN CORPUSCULAR HGB CONC 30.8 g/dL (31-35); MEAN CORPUSCULAR VOLUME 91.5 fL (81-99); MONOCYTES # (AUTO) 1.2 (0.2-0.8); MONOCYTES % 8.6 % (4.4-11.3); NEUTROPHILS # (AUTO) 10.5 (2.1-6.9); NEUTROPHILS % 78.3 % (38.7-80.0); PLATELET COUNT 408 x10e3/uL (140-360); RED BLOOD COUNT 3.41 x10e6/uL (3.6-5.1); WHITE BLOOD COUNT 13.38 x10e3/uL (4.8-10.8)
[2024-02-13 08:01] LABS: ANION GAP 12.4 mmol/L (8-16); CALCIUM 8.3 mg/dL (8.4-10.2); CREATININE, SERUM 2.57 mg/dL (0.57-1.11); POTASSIUM 4.4 mmol/L (3.5-5.1)
[2024-02-14] VITALS (11 sets, daily range): BP systolic 120–148; BP diastolic 46–61; PULSE 55–89; RESP 16–20; TEMP 97.7–98.4; O2SAT 98–100
[2024-02-14] MEDS ORDERED: MAGNESIUM HYDROXIDE 30 ML UDC PO PRN (10:00)
[2024-02-14] MEDS: SENNA-S TABLET PO SCH (11:35)
[2024-02-15] VITALS (8 sets, daily range): BP systolic 127–159; BP diastolic 50–79; PULSE 57–68; RESP 17–19; TEMP 97–99.1; O2SAT 97–100
[2024-02-16] VITALS (7 sets, daily range): BP systolic 149–161; BP diastolic 47–68; PULSE 54–65; RESP 16–20; TEMP 98–100.3; O2SAT 100
[2024-02-16] MEDS: ACETAMINOPHEN 325 MG TAB PO PRN (01:05)
[2024-02-16 05:59] LABS: BASOPHILS # (AUTO) 0.1 (0.0-0.1); BASOPHILS % 0.5 % (0.0-1.0); EOSINOPHILS # (AUTO) 0.3 (0.0-0.4); EOSINOPHILS % 3.1 % (0.0-6.0); HEMOGLOBIN 9.5 g/dL (12.0-16.0); LYMPHOCYTES # (AUTO) 1.3 (1.0-3.2); LYMPHOCYTES % 13.3 % (18.0-39.1); MEAN CORPUSCULAR HEMOGLOBIN 28.3 pg (28-32); MEAN CORPUSCULAR HGB CONC 30.6 g/dL (31-35); MEAN CORPUSCULAR VOLUME 92.3 fL (81-99); MONOCYTES # (AUTO) 0.9 (0.2-0.8); MONOCYTES % 8.6 % (4.4-11.3); NEUTROPHILS # (AUTO) 7.4 (2.1-6.9); NEUTROPHILS % 74.1 % (38.7-80.0); PLATELET COUNT 367 x10e3/uL (140-360); RED BLOOD COUNT 3.36 x10e6/uL (3.6-5.1); RED CELL DISTRIBUTION WIDTH 16.9 % (11.7-14.4); WHITE BLOOD COUNT 10.04 x10e3/uL (4.8-10.8)
[2024-02-16 06:47] LABS: ANION GAP 11.7 mmol/L (8-16); CALCIUM 7.8 mg/dL (8.4-10.2); CREATININE, SERUM 1.5 mg/dL (0.57-1.11); POTASSIUM 3.7 mmol/L (3.5-5.1)
[2024-02-16] MEDS ORDERED: LIDOCAINE HCL 1% LOCAL INJ 20 ML VIAL ONE (11:52)
[2024-02-16] MEDS ORDERED: IOPAMIDOL 370 MG/ML 100 ML INFUS..BTL INJ ONE (11:53)
[2024-02-16] MEDS ORDERED: SODIUM CHLORIDE 0.9% 250ML 250 ML ONE (11:53)
[2024-02-16] MEDS ORDERED: FENTANYL CITRATE/PF 100MCG/2 ML INJ ONE (13:31)
[2024-02-17] VITALS (7 sets, daily range): BP systolic 99–165; BP diastolic 50–72; PULSE 58–84; RESP 17–18; TEMP 97.7–98.4; O2SAT 100
[2024-02-18] VITALS (8 sets, daily range): BP systolic 146–172; BP diastolic 54–64; PULSE 61–66; RESP 16–19; TEMP 97.8–98.4; O2SAT 98–100
[2024-02-19] VITALS: BP 170/53; PULSE 57; RESP 17; TEMP 98; O2SAT 100
[2024-02-19 04:00] VITALS: BP 176/61; PULSE 57; RESP 17; TEMP 98.3; O2SAT 100
[2024-02-19 05:30] LABS: BASOPHILS # (AUTO) 0.1 (0.0-0.1); BASOPHILS % 0.6 % (0.0-1.0); EOSINOPHILS # (AUTO) 0.4 (0.0-0.4); EOSINOPHILS % 4.2 % (0.0-6.0); HEMATOCRIT 31.8 % (34.2-44.1); HEMOGLOBIN 9.8 g/dL (12.0-16.0); LYMPHOCYTES # (AUTO) 1.3 (1.0-3.2); LYMPHOCYTES % 14.7 % (18.0-39.1); MEAN CORPUSCULAR HEMOGLOBIN 28.1 pg (28-32); MEAN CORPUSCULAR HGB CONC 30.8 g/dL (31-35); MEAN CORPUSCULAR VOLUME 91.1 fL (81-99); MONOCYTES # (AUTO) 0.7 (0.2-0.8); MONOCYTES % 7.8 % (4.4-11.3); NEUTROPHILS # (AUTO) 6.5 (2.1-6.9); NEUTROPHILS % 72.3 % (38.7-80.0); PLATELET COUNT 340 x10e3/uL (140-360); RED BLOOD COUNT 3.49 x10e6/uL (3.6-5.1); RED CELL DISTRIBUTION WIDTH 16.7 % (11.7-14.4); WHITE BLOOD COUNT 8.99 x10e3/uL (4.8-10.8)
[2024-02-19 06:01] LABS: ANION GAP 12.4 mmol/L (8-16); CALCIUM 7.7 mg/dL (8.4-10.2); CREATININE, SERUM 1.5 mg/dL (0.57-1.11)
[2024-02-19 06:02] LABS: POTASSIUM 3.4 mmol/L (3.5-5.1)
[2024-02-19 08:00] VITALS: BP_SYST 121; BP_SYST 194; BP_DIAS 66; BP_DIAS 69; PULSE 60; PULSE 64; RESP 18; TEMP 97.8; O2SAT 100
[2024-02-19] MEDS: MORPHINE SULFATE ER 15 MG TAB PO ONE (08:39)
[2024-02-19] MEDS: MORPHINE SULFATE IR 15 MG TABLET PO ONE (08:39)
[2024-02-19 09:21] VITALS: BP 194/69; PULSE 60; RESP 18; TEMP 97.8; O2SAT 100
[2024-02-19] MEDS: HYDROCODONE/APAP 10MG-325MG TAB PO PRN (12:15)
== END 2024-02-19 12:30 | disposition home or self-care (01) | DRG 698 ==
LOC: ER 15:41 → ERHOLD 17:22 → MED/SURG2 02-12 21:02
PROVIDERS: ADMIT Internal Medicine; ATTEND Internal Medicine
PROC: 0T9430Z Drainage of Left Kidney Pelvis with Drainage Device, Percutaneous Approach (ICD-10-PCS; principal; 2024-02-12)
PROC: 30233N1 Transfusion of Nonautologous Red Blood Cells into Peripheral Vein, Percutaneous Approach (ICD-10-PCS; 2024-02-12)
DX: T83.122A Displacement of indwelling ureteral stent, initial encounter (principal); E43 Unspecified severe protein-calorie malnutrition; C79.19 Secondary malignant neoplasm of other urinary organs; C79.11 Secondary malignant neoplasm of bladder; C79.01 Secondary malignant neoplasm of right kidney and renal pelvis; C79.02 Secondary malignant neoplasm of left kidney and renal pelvis; N13.6 Pyonephrosis; N32.2 Vesical fistula, not elsewhere classified; C56.9 Malignant neoplasm of unspecified ovary; Z51.5 Encounter for palliative care; I12.9 Hypertensive chronic kidney disease with stage 1 through stage 4 chronic kidney disease, or unspecified chronic kidney disease; E11.22 Type 2 diabetes mellitus with diabetic chronic kidney disease; N18.9 Chronic kidney disease, unspecified; D63.1 Anemia in chronic kidney disease; E03.9 Hypothyroidism, unspecified; K21.9 Gastro-esophageal reflux disease without esophagitis; R31.9 Hematuria, unspecified; R19.7 Diarrhea, unspecified; Y84.9 Medical procedure, unspecified as the cause of abnormal reaction of the patient, or of later complication, without mention of misadventure at the time of the procedure; Z79.84 Long term (current) use of oral hypoglycemic drugs; Z79.890 Hormone replacement therapy; Z96.0 Presence of urogenital implants; E66.9 Obesity, unspecified; Z68.26 Body mass index [BMI] 26.0-26.9, adult; Z87.440 Personal history of urinary (tract) infections
CPT/HCPCS: 36415; 50430; 50432; 74176; 74425; 74470; 76942; 80048; 80053; 81001; 82565; 82948; 83605; 85025; 85610; 86850; 86900; 86920; 87040; 87086; 94799; 99152; 99252; 99284; C1769; J0690; J1940; J2001; J2250; J2270; J2543; J7030; J7040; J7050; P9016; Q9967

== ENCOUNTER 2024-05-04 05:00 | Inpatient (IN) | payer MEDICARE ==
[~2024-05-04] VITALS: Ht 271.8 cm; Wt 59.9 kg
[~2024-05-04 05:00] MED LIST changes: -ACETAMINOPHEN 1000 MG/100 ML IV PRN; -ACETAMINOPHEN/CODEINE 300MG - 30MG TAB PO PRN; -DIPHENHYDRAMINE HCL 25 MG CAP PO PRN; -FENTANYL CITRATE/PF 100MCG/2 ML INJ ONE; -GENTAMICIN SULFATE 40 MG/ML 2 ML VIAL ONE; -IOPAMIDOL 370 MG/ML 100 ML INFUS..BTL INJ ONE; -LIDOCAINE HCL 1% 30ML-PF VIAL ONE; -LIDOCAINE HCL 2% LOCAL INJ 5 ML SDV VIAL INJ ONE; -MEROPENEM 1 GM in SODIUM CHLORIDE 0.9% 100 ML IV SCH; -MIDAZOLAM HCL 2 MG/2 ML VIAL ONE; -ONDANSETRON HCL INJ 2MG/ML 2ML 2 MG/ML VIAL ONE; -PHENAZOPYRIDINE HCL 100 MG TAB PO PRN; -PROPOFOL IV EMULSION 10 MG/ML 20 ML VIAL ONE; -SENNA-S TABLET PO SCH; -SODIUM CHLORIDE 0.9% 100 ML ONE; -SODIUM CHLORIDE 0.9% 1000ML 1,000 ML IV SCH; -SODIUM CHLORIDE 0.9% 250ML 250 ML ONE; -SODIUM CHLORIDE 0.9% 500ML 500 ML ONE
[2024-05-04] MEDS ORDERED: ACETAMINOPHEN 1000 MG/100 ML IV PRN (14:15)
[2024-05-04] MEDS ORDERED: DIPHENHYDRAMINE HCL 25 MG CAP PO PRN (14:15)
[2024-05-04] MEDS ORDERED: PHENAZOPYRIDINE HCL 100 MG TAB PO PRN (14:15)
[2024-05-04] MEDS: SODIUM CHLORIDE 0.9% 1000ML 1,000 ML IV SCH (14:15)
[2024-05-04 15:50] VITALS: PULSE 62; RESP 18; O2SAT 97
[2024-05-04 15:56] LABS: BASOPHILS # (AUTO) 0.1 (0.0-0.1); BASOPHILS % 0.4 % (0.0-1.0); EOSINOPHILS # (AUTO) 0.3 (0.0-0.4); EOSINOPHILS % 2.1 % (0.0-6.0); HEMATOCRIT 33.3 % (34.2-44.1); HEMOGLOBIN 9.8 g/dL (12.0-16.0); LYMPHOCYTES # (AUTO) 2.9 (1.0-3.2); LYMPHOCYTES % 20.5 % (18.0-39.1); MEAN CORPUSCULAR HEMOGLOBIN 30.5 pg (28-32); MEAN CORPUSCULAR HGB CONC 29.4 g/dL (31-35); MEAN CORPUSCULAR VOLUME 103.7 fL (81-99); MONOCYTES # (AUTO) 0.8 (0.2-0.8); MONOCYTES % 5.5 % (4.4-11.3); NEUTROPHILS # (AUTO) 10.1 (2.1-6.9); NEUTROPHILS % 71.1 % (38.7-80.0); PLATELET COUNT 394 x10e3/uL (140-360); RED BLOOD COUNT 3.21 x10e6/uL (3.6-5.1); RED CELL DISTRIBUTION WIDTH 15.8 % (11.7-14.4); WHITE BLOOD COUNT 14.21 x10e3/uL (4.8-10.8)
[2024-05-04] MEDS: MEROPENEM 1 GM VIAL ONE (16:03)
[2024-05-04 16:07] VITALS: BP 106/51; PULSE 50; RESP 16; TEMP 98.9; O2SAT 100
[2024-05-04 16:14] LABS: INR 0.99; PROTHROMBIN TIME 13.7 seconds (11.9-14.5)
[2024-05-04 16:15] LABS: PARTIAL THROMBOPLASTIN TIME 35.5 seconds (23.8-35.5)
[2024-05-04 16:23] LABS: ALBUMIN 2.6 g/dL (3.5-5.0); ALBUMIN/GLOBULIN RATIO 0.6 (0.8-2.0); ANION GAP 14.2 mmol/L (8-16); BILIRUBIN,TOTAL 0.2 mg/dL (0.2-1.2); CALCIUM 8.4 mg/dL (8.4-10.2); CREATININE, SERUM 2.47 mg/dL (0.57-1.11); POTASSIUM 4.2 mmol/L (3.5-5.1); TOTAL PROTEIN 6.7 g/dL (6.5-8.1)
[2024-05-04 16:44] VITALS: BP 145/63; PULSE 74; RESP 18; TEMP 97.5; O2SAT 100
[2024-05-04 16:46] VITALS: BP 145/63; PULSE 74; RESP 18; TEMP 97.5; O2SAT 100
[2024-05-04] MEDS: ACETAMINOPHEN/CODEINE 300MG - 30MG TAB PO PRN (17:50)
[2024-05-04] MEDS: SENNA-S TABLET PO SCH (17:51)
[2024-05-04 20:00] VITALS: BP 114/59; PULSE 72; RESP 18; TEMP 97.7; O2SAT 100
[2024-05-04 20:45] VITALS: PULSE 71; RESP 18; O2SAT 97
[2024-05-04] MEDS: MEROPENEM 1 GM in SODIUM CHLORIDE 0.9% 100 ML IV SCH (21:21)
[2024-05-05] VITALS (10 sets, daily range): BP systolic 92–134; BP diastolic 41–55; PULSE 60–75; RESP 17–18; TEMP 97.7–98.8; O2SAT 99–100
[2024-05-05] MEDS ORDERED: ACETAMINOPHEN 325 MG/10 ML UDC PO PRN (09:30)
[2024-05-05] MEDS: MORPHINE SULFATE ER 15 MG TAB PO PRN (11:34)
[2024-05-05] MEDS: HYDRALAZINE HCL 100 MG TABLET PO SCH (15:00)
[2024-05-05] MEDS: GABAPENTIN 300 MG CAP PO SCH (17:10)
[2024-05-05] MEDS: CRESTOR 10MG PO SCH (20:25)
[2024-05-06 00:10] VITALS: BP 84/37; PULSE 46; RESP 17; TEMP 98.2; O2SAT 100
[2024-05-06 04:00] VITALS: BP 89/41; PULSE 51; RESP 16; TEMP 97.3; O2SAT 98
[2024-05-06] MEDS: LEVOTHYROXINE SODIUM 75 MCG TAB PO SCH (06:10)
[2024-05-06 07:33] VITALS: PULSE 72; RESP 18; O2SAT 98
[2024-05-06 08:36] VITALS: BP 170/50; PULSE 50; RESP 19; TEMP 97.7; O2SAT 95
[2024-05-06] MEDS ORDERED: SIMVASTATIN 40 MG TAB PO SCH (09:00)
[2024-05-06] MEDS: SOLIFENACIN SUCCINATE 5 MG TAB PO SCH (09:48)
[2024-05-06] MEDS: AMLODIPINE BESYLATE 10 MG TAB PO SCH (09:49)
[2024-05-06 10:07] LABS: BASOPHILS % 0.3 % (0.0-1.0); EOSINOPHILS # (AUTO) 0.3 (0.0-0.4); EOSINOPHILS % 2.8 % (0.0-6.0); HEMATOCRIT 26.5 % (34.2-44.1); LYMPHOCYTES # (AUTO) 2.6 (1.0-3.2); LYMPHOCYTES % 21.9 % (18.0-39.1); MEAN CORPUSCULAR HEMOGLOBIN 30.3 pg (28-32); MEAN CORPUSCULAR HGB CONC 30.2 g/dL (31-35); MEAN CORPUSCULAR VOLUME 100.4 fL (81-99); MONOCYTES # (AUTO) 0.9 (0.2-0.8); MONOCYTES % 7.5 % (4.4-11.3); NEUTROPHILS # (AUTO) 7.8 (2.1-6.9); NEUTROPHILS % 67.1 % (38.7-80.0); PLATELET COUNT 314 x10e3/uL (140-360); RED BLOOD COUNT 2.64 x10e6/uL (3.6-5.1); RED CELL DISTRIBUTION WIDTH 16.2 % (11.7-14.4); WHITE BLOOD COUNT 11.66 x10e3/uL (4.8-10.8)
[2024-05-06 10:15] LABS: ANION GAP 9.8 mmol/L (8-16); CALCIUM 8.4 mg/dL (8.4-10.2); CREATININE, SERUM 2.35 mg/dL (0.57-1.11); POTASSIUM 4.8 mmol/L (3.5-5.1)
[2024-05-06 12:39] VITALS: BP 99/41; PULSE 66; RESP 18; TEMP 97.9; O2SAT 100
[2024-05-06 16:49] VITALS: BP 100/41; PULSE 81; RESP 19; TEMP 98.1; O2SAT 98
== END 2024-05-06 18:40 | disposition home or self-care (01) | DRG 699 ==
LOC: OR 05:00 → PACU V 14:06 → MED/SURG2 14:57
PROVIDERS: ADMIT Internal Medicine; ATTEND Internal Medicine
PROC: 0UJH7ZZ Inspection of Vagina and Cul-de-sac, Via Natural or Artificial Opening (ICD-10-PCS; 2024-05-04)
PROC: 0TP98DZ Removal of Intraluminal Device from Ureter, Via Natural or Artificial Opening Endoscopic (ICD-10-PCS; principal; 2024-05-04 12:26)
PROC: BT1D1ZZ Fluoroscopy of Right Kidney, Ureter and Bladder using Low Osmolar Contrast (ICD-10-PCS; 2024-05-04 12:26)
DX: T83.192A Other mechanical complication of indwelling ureteral stent, initial encounter (principal); C56.9 Malignant neoplasm of unspecified ovary; C79.19 Secondary malignant neoplasm of other urinary organs; N32.1 Vesicointestinal fistula; T83.593A Infection and inflammatory reaction due to other urinary stents, initial encounter; T83.518A Infection and inflammatory reaction due to other urinary catheter, initial encounter; D63.0 Anemia in neoplastic disease; R53.81 Other malaise; N18.9 Chronic kidney disease, unspecified; Z93.6 Other artificial openings of urinary tract status; N95.2 Postmenopausal atrophic vaginitis
CPT/HCPCS: 36415; 74420; 80048; 80053; 82948; 83735; 85025; 85610; 85730; 87086; 93005; 94799; J2185; J7030; J7050

== ENCOUNTER → 2024-05-04 | Outpatient (REF) | payer MEDICARE ==
[~2024-05-04] MED LIST changes: +ACETAMINOPHEN 1000 MG/100 ML IV PRN; +ACETAMINOPHEN/CODEINE 300MG - 30MG TAB PO PRN; +DIPHENHYDRAMINE HCL 25 MG CAP PO PRN; +FENTANYL CITRATE/PF 100MCG/2 ML INJ ONE; +GENTAMICIN SULFATE 40 MG/ML 2 ML VIAL ONE; +IOPAMIDOL 370 MG/ML 100 ML INFUS..BTL INJ ONE; +LIDOCAINE HCL 1% 30ML-PF VIAL ONE; +LIDOCAINE HCL 2% LOCAL INJ 5 ML SDV VIAL INJ ONE; +MEROPENEM 1 GM in SODIUM CHLORIDE 0.9% 100 ML IV SCH; +MIDAZOLAM HCL 2 MG/2 ML VIAL ONE; +ONDANSETRON HCL INJ 2MG/ML 2ML 2 MG/ML VIAL ONE; +PHENAZOPYRIDINE HCL 100 MG TAB PO PRN; +PROPOFOL IV EMULSION 10 MG/ML 20 ML VIAL ONE; +SENNA-S TABLET PO SCH; +SODIUM CHLORIDE 0.9% 100 ML ONE; +SODIUM CHLORIDE 0.9% 1000ML 1,000 ML IV SCH; +SODIUM CHLORIDE 0.9% 250ML 250 ML ONE; +SODIUM CHLORIDE 0.9% 500ML 500 ML ONE
[2024-05-04 08:51] LABS: BASOPHILS # (AUTO) 0.1 (0.0-0.1); BASOPHILS % 0.4 % (0.0-1.0); EOSINOPHILS # (AUTO) 0.4 (0.0-0.4); EOSINOPHILS % 2.4 % (0.0-6.0); HEMATOCRIT 32.9 % (34.2-44.1); HEMOGLOBIN 9.9 g/dL (12.0-16.0); LYMPHOCYTES # (AUTO) 2.5 (1.0-3.2); LYMPHOCYTES % 15.4 % (18.0-39.1); MEAN CORPUSCULAR HEMOGLOBIN 30.6 pg (28-32); MEAN CORPUSCULAR HGB CONC 30.1 g/dL (31-35); MEAN CORPUSCULAR VOLUME 101.5 fL (81-99); MONOCYTES # (AUTO) 1.2 (0.2-0.8); MONOCYTES % 7.4 % (4.4-11.3); NEUTROPHILS % 73.9 % (38.7-80.0); PLATELET COUNT 414 x10e3/uL (140-360); RED BLOOD COUNT 3.24 x10e6/uL (3.6-5.1); RED CELL DISTRIBUTION WIDTH 15.9 % (11.7-14.4); WHITE BLOOD COUNT 16.19 x10e3/uL (4.8-10.8)
[2024-05-04 09:09] LABS: INR 0.85; PROTHROMBIN TIME 12.2 seconds (11.9-14.5)
[2024-05-04 09:10] LABS: PARTIAL THROMBOPLASTIN TIME 29.3 seconds (23.8-35.5)
[2024-05-04 09:15] LABS: ALBUMIN 2.7 g/dL (3.5-5.0); ALBUMIN/GLOBULIN RATIO 0.6 (0.8-2.0); ANION GAP 15.1 mmol/L (8-16); BILIRUBIN,TOTAL 0.2 mg/dL (0.2-1.2); CALCIUM 8.7 mg/dL (8.4-10.2); CREATININE, SERUM 3.05 mg/dL (0.57-1.11); POTASSIUM 4.1 mmol/L (3.5-5.1); TOTAL PROTEIN 7.2 g/dL (6.5-8.1)
== END ==
LOC: DX 07:46
PROVIDERS: ATTEND Urology
DX: N13.30 Unspecified hydronephrosis (principal); N39.46 Mixed incontinence
CPT/HCPCS: 36415; 50432; 50435; 76942; 80053; 82948; 85025; 85610; 85730; C1729; C1769; J2003 ×2; J2250; J2405; J2704; J3010; J7040; J7050 ×2; Q9967; 99152; 99153; J1580

== ENCOUNTER 2024-06-22 15:51 | Inpatient (IN) | payer MEDICARE ==
[~2024-06-22] VITALS: Ht 180.3 cm; Wt 57.6 kg
[2024-06-22 16:32] LABS: BASOPHILS % 0.1 % (0.0-1.0); EOSINOPHILS # (AUTO) 0.4 (0.0-0.4); EOSINOPHILS % 1.3 % (0.0-6.0); HEMATOCRIT 23.7 % (34.2-44.1); HEMOGLOBIN 7.2 g/dL (12.0-16.0); LYMPHOCYTES # (AUTO) 1.5 (1.0-3.2); MEAN CORPUSCULAR HEMOGLOBIN 30.8 pg (28-32); MEAN CORPUSCULAR HGB CONC 30.4 g/dL (31-35); MEAN CORPUSCULAR VOLUME 101.3 fL (81-99); MONOCYTES # (AUTO) 1.4 (0.2-0.8); MONOCYTES % 4.7 % (4.4-11.3); NEUTROPHILS # (AUTO) 25.9 (2.1-6.9); NEUTROPHILS % 88.2 % (38.7-80.0); PLATELET COUNT 460 x10e3/uL (140-360); RED BLOOD COUNT 2.34 x10e6/uL (3.6-5.1); RED CELL DISTRIBUTION WIDTH 13.3 % (11.7-14.4)
[2024-06-22 16:49] LABS: ALBUMIN/GLOBULIN RATIO 0.4 (0.8-2.0); ANION GAP 18.5 mmol/L (8-16); BILIRUBIN,TOTAL 0.2 mg/dL (0.2-1.2); CREATININE, SERUM 4.93 mg/dL (0.57-1.11); POTASSIUM 4.5 mmol/L (3.5-5.1); TOTAL PROTEIN 6.6 g/dL (6.5-8.1)
[2024-06-22] MEDS: Morphine 4mg INJECTION 4 MG/ML INJ IV ONE (17:58)
[2024-06-22] MEDS ORDERED: Morphine 4mg INJECTION 4 MG/ML INJ IV PRN (19:15)
[2024-06-22 19:51] VITALS: PULSE 97; RESP 18
[2024-06-22] MEDS: SODIUM CHLORIDE 0.9% 1000ML 1,000 ML IV SCH (19:54)
[2024-06-22 20:30] LABS: BAND NEUTROPHILS % (MANUAL) 1 %; LYMPHOCYTES % (MANUAL) 9 % (19-48); MONOCYTES % (MANUAL) 5 % (3.4-9.0); NEUTROPHILS % (MANUAL) 85 % (40-74)
[2024-06-22 20:32] LABS: PLATELET ESTIMATE MODERATELY INCREASED
[2024-06-22 20:34] LABS: POIKILOCYTOSIS SLIGHT
[2024-06-22 20:35] LABS: ANISOCYTOSIS SLIGHT; HYPOCHROMASIA SLIG; POLYCHROMASIA FEW
[2024-06-22 20:45] VITALS: BP 87/71; PULSE 48; RESP 16; TEMP 97.5; O2SAT 96
[2024-06-22 20:55] VITALS: BP 125/48; PULSE 80; RESP 16; TEMP 97.5; O2SAT 100
[2024-06-22 22:00] VITALS: BP 125/48; PULSE 80; RESP 16; TEMP 97.5; O2SAT 100
[2024-06-22 22:08] LABS: ALANINE AMINOTRANSFERASE 21 IU/L (0-55); ALBUMIN 1.9 g/dL (3.5-5.0); ALBUMIN/GLOBULIN RATIO 0.4 (0.8-2.0); ALKALINE PHOSPHATASE 104 IU/L (40-150); ANION GAP 19.6 mmol/L (8-16); BILIRUBIN,TOTAL 0.2 mg/dL (0.2-1.2); BLOOD UREA NITROGEN 92 mg/dL (7-26); BUN/CREATININE RATIO 19 (6-25); CALCIUM 8.8 mg/dL (8.4-10.2); CARBON DIOXIDE 11 mmol/L (22-29); CHLORIDE 105 mmol/L (98-107); CREATINE KINASE 16 IU/L (29-168); CREATININE, SERUM 4.97 mg/dL (0.57-1.11); EST GLOMERULAR FILTRATION RATE 9 ML/MIN (>=60); GLUCOSE 130 mg/dL (74-118); POTASSIUM 4.6 mmol/L (3.5-5.1); SODIUM 131 mmol/L (136-145); TOTAL PROTEIN 6.2 g/dL (6.5-8.1)
[2024-06-22 22:15] LABS: BASOPHILS # (AUTO) 0.1 (0.0-0.1); BASOPHILS % 0.2 % (0.0-1.0); EOSINOPHILS # (AUTO) 0.3 (0.0-0.4); EOSINOPHILS % 1.1 % (0.0-6.0); HEMOGLOBIN 6.6 g/dL (12.0-16.0); LYMPHOCYTES # (AUTO) 3.1 (1.0-3.2); LYMPHOCYTES % 10.5 % (18.0-39.1); MEAN CORPUSCULAR HEMOGLOBIN 30.8 pg (28-32); MEAN CORPUSCULAR HGB CONC 30.6 g/dL (31-35); MEAN CORPUSCULAR VOLUME 100.9 fL (81-99); MONOCYTES # (AUTO) 1.6 (0.2-0.8); MONOCYTES % 5.4 % (4.4-11.3); NEUTROPHILS # (AUTO) 24.4 (2.1-6.9); NEUTROPHILS % 82.1 % (38.7-80.0); PLATELET COUNT 576 x10e3/uL (140-360); RED BLOOD COUNT 2.14 x10e6/uL (3.6-5.1); RED CELL DISTRIBUTION WIDTH 13.6 % (11.7-14.4); WHITE BLOOD COUNT 29.76 x10e3/uL (4.8-10.8)
[2024-06-22 22:17] LABS: HEMATOCRIT 21.6 % (34.2-44.1)
[2024-06-22 22:42] LABS: TROPONIN I < 0.05 ng/mL (0.0-0.40)
[2024-06-23] VITALS (36 sets, daily range): BP systolic 83–153; BP diastolic 37–71; PULSE 60–112; RESP 14–27; TEMP 97.3–98.7; O2SAT 85–100
[2024-06-23] MEDS ORDERED: OCTREOTIDE ACETATE 500 MCG in SODIUM CHLORIDE 0.9% 250ML 249 ML IV SCH (08:00)
[2024-06-23] MEDS ORDERED: TRANEXAMIC ACID 1,000 MG/10 ML ML IV ONE (08:30)
[2024-06-23] MEDS ORDERED: LIDOCAINE HCL 1% 30ML-PF VIAL ONE (09:05)
[2024-06-23] MEDS ORDERED: IOPAMIDOL 370 MG/ML 100 ML INFUS..BTL INJ ONE (09:06)
[2024-06-23] MEDS ORDERED: SODIUM CHLORIDE 0.9% 250ML 250 ML ONE ×2 (09:06→09:55)
[2024-06-23] MEDS ORDERED: CEFTRIAXONE 1 GM VIAL ONE (09:55)
[2024-06-23] MEDS ORDERED: FENTANYL CITRATE/PF 100MCG/2 ML INJ ONE (09:55)
[2024-06-23] MEDS ORDERED: MIDAZOLAM HCL 2 MG/2 ML VIAL ONE (09:55)
[2024-06-23] MEDS: SODIUM BICARBONATE 8.4% SYRING 150 ML in DEXTROSE 5% 1,000 ML IV SCH (11:46)
[2024-06-23] MEDS: TRANEXAMIC ACID 1,000 MG in SODIUM CHLORIDE 0.9% 100 ML IV ONE (11:47)
[2024-06-23] MEDS: Vancomycin IV 1 GM in SODIUM CHLORIDE 0.9% 250ML 250 ML IV ONE (11:48)
[2024-06-23] MEDS: LEVOTHYROXINE SODIUM 75 MCG TAB PO SCH (11:48)
[2024-06-23] MEDS: MUPIROCIN 2% OINT 22 GM TUBE TOP SCH (11:48)
[2024-06-23 14:15] LABS: HEMOGLOBIN 7.4 g/dL (12.0-16.0)
[2024-06-23 14:17] LABS: HEMATOCRIT 22.8 % (34.2-44.1)
[2024-06-23] MEDS: SODIUM CHLORIDE 0.9% 250ML 250 ML ONE ×2 (15:18)
[2024-06-23] MEDS: MORPHINE SULFATE ER 15 MG TAB PO PRN (15:57)
[2024-06-23 16:53] LABS: BILIRUBIN,URINE NEGATIVE (NEGATIVE); CLARITY,URINE SL CLOUDY (CLEAR); COLOR,URINE YELLOW (YELLOW); GLUCOSE, URINE NEGATIVE (NEGATIVE); KETONES,URINE NEGATIVE (NEGATIVE); LEUKOCYTE ESTERASE ,URINE MODERATE (NEGATIVE); NITRITE,URINE NEGATIVE (NEGATIVE); PH,URINE 5.5 (5 - 7); PROTEIN,URINE DIPSTICK TRACE (NEGATIVE); URINE UROBILINOGEN 0.2 mg/dL (0.2 - 1)
[2024-06-23 16:54] LABS: RBC,URINE 21-50 /HPF (0-5); WBC,URINE (MAN) >50 /HPF (0-5)
[2024-06-23 16:55] LABS: BACTERIA,URINE MODERATE /HPF
[2024-06-23] MEDS: SODIUM CHLORIDE 0.9% 1000ML 2,000 ML IV STA (17:51)
[2024-06-23] MEDS: HYDROMORPHONE 1MG/1ML INJ IV PRN (19:10)
[2024-06-23] MEDS: ACETAMINOPHEN 325 MG TAB PO PRN (21:53)
[2024-06-23 22:34] LABS: HEMATOCRIT 22.2 % (34.2-44.1); HEMOGLOBIN 7.3 g/dL (12.0-16.0)
[2024-06-24] VITALS (34 sets, daily range): BP systolic 119–165; BP diastolic 40–65; PULSE 60–95; RESP 0–24; TEMP 97.8–98.7; O2SAT 96–100
[2024-06-24 07:29] LABS: BASOPHILS % 0.2 % (0.0-1.0); EOSINOPHILS # (AUTO) 0.2 (0.0-0.4); EOSINOPHILS % 1.2 % (0.0-6.0); LYMPHOCYTES # (AUTO) 1.5 (1.0-3.2); LYMPHOCYTES % 8.5 % (18.0-39.1); MEAN CORPUSCULAR HEMOGLOBIN 28.9 pg (28-32); MEAN CORPUSCULAR HGB CONC 33.7 g/dL (31-35); MONOCYTES % 5.8 % (4.4-11.3); NEUTROPHILS # (AUTO) 14.8 (2.1-6.9); NEUTROPHILS % 83.5 % (38.7-80.0); PLATELET COUNT 320 x10e3/uL (140-360); RED BLOOD COUNT 2.32 x10e6/uL (3.6-5.1); RED CELL DISTRIBUTION WIDTH 15.7 % (11.7-14.4); WHITE BLOOD COUNT 17.78 x10e3/uL (4.8-10.8)
[2024-06-24 07:42] LABS: HEMATOCRIT 19.9 % (34.2-44.1); HEMOGLOBIN 6.7 g/dL (12.0-16.0); MEAN CORPUSCULAR VOLUME 85.8 fL (81-99)
[2024-06-24 07:53] LABS: ALBUMIN 1.4 g/dL (3.5-5.0); ALBUMIN/GLOBULIN RATIO 0.5 (0.8-2.0); ANION GAP 13.9 mmol/L (8-16); BILIRUBIN,TOTAL 0.2 mg/dL (0.2-1.2); CALCIUM 7.6 mg/dL (8.4-10.2); CREATININE, SERUM 3.83 mg/dL (0.57-1.11); POTASSIUM 3.9 mmol/L (3.5-5.1); TOTAL PROTEIN 4.3 g/dL (6.5-8.1)
[2024-06-24] MEDS: SODIUM CHLORIDE 0.9% 250ML 250 ML IV ONE (09:39)
[2024-06-24 18:26] LABS: HEMATOCRIT 30.2 % (34.2-44.1); HEMOGLOBIN 10.3 g/dL (12.0-16.0)
[2024-06-25] VITALS (9 sets, daily range): BP systolic 142–167; BP diastolic 47–66; PULSE 68–83; RESP 14–19; TEMP 98.1; O2SAT 99–100
[2024-06-25] MEDS: ONDANSETRON HCL INJ 2MG/ML 2ML 2 MG/ML VIAL IV PRN (05:15)
[2024-06-25 07:14] LABS: BASOPHILS # (AUTO) 0.1 (0.0-0.1); BASOPHILS % 0.3 % (0.0-1.0); EOSINOPHILS # (AUTO) 0.1 (0.0-0.4); EOSINOPHILS % 0.9 % (0.0-6.0); HEMOGLOBIN 10.2 g/dL (12.0-16.0); LYMPHOCYTES # (AUTO) 1.7 (1.0-3.2); LYMPHOCYTES % 11.1 % (18.0-39.1); MEAN CORPUSCULAR HEMOGLOBIN 29.3 pg (28-32); MEAN CORPUSCULAR VOLUME 86.2 fL (81-99); MONOCYTES # (AUTO) 0.9 (0.2-0.8); MONOCYTES % 5.7 % (4.4-11.3); NEUTROPHILS # (AUTO) 12.7 (2.1-6.9); NEUTROPHILS % 81.3 % (38.7-80.0); PLATELET COUNT 261 x10e3/uL (140-360); RED BLOOD COUNT 3.48 x10e6/uL (3.6-5.1); RED CELL DISTRIBUTION WIDTH 15.7 % (11.7-14.4); WHITE BLOOD COUNT 15.57 x10e3/uL (4.8-10.8)
[2024-06-25 07:59] LABS: ALBUMIN 1.5 g/dL (3.5-5.0); ALBUMIN/GLOBULIN RATIO 0.4 (0.8-2.0); ANION GAP 14.9 mmol/L (8-16); BILIRUBIN,TOTAL 0.3 mg/dL (0.2-1.2); CALCIUM 8.1 mg/dL (8.4-10.2); CREATININE, SERUM 3.08 mg/dL (0.57-1.11); POTASSIUM 3.9 mmol/L (3.5-5.1); TOTAL PROTEIN 4.9 g/dL (6.5-8.1)
[2024-06-25] MEDS ORDERED: AUGMENTIN 500-1 EACH PO (08:57)
[2024-06-25] MEDS ORDERED: PANTOPRAZOLE SO40 MG PO (08:57)
[2024-06-25] MEDS ORDERED: DIFLUCAN100 MG PO (08:57)
[2024-06-25] MEDS: FLUCONAZOLE 100 MG/NS 50 ML 50 ML IV SCH (10:55)
== END 2024-06-25 11:13 | disposition hospice, home (50) | DRG 698 ==
LOC: ER 16:56 → ERHOLD 19:09 → MED/SURG 20:39 → ICU 06-23 08:23
PROVIDERS: ADMIT Internal Medicine; ATTEND Internal Medicine
PROC: 3E03329 Introduction of Other Anti-infective into Peripheral Vein, Percutaneous Approach (ICD-10-PCS; 2024-06-22)
PROC: 30233N1 Transfusion of Nonautologous Red Blood Cells into Peripheral Vein, Percutaneous Approach (ICD-10-PCS; principal; 2024-06-23)
PROC: 0T25X0Z Change Drainage Device in Kidney, External Approach (ICD-10-PCS; 2024-06-23)
PROC: 0T25X0Z Change Drainage Device in Kidney, External Approach (ICD-10-PCS; 2024-06-23)
PROC: 30233N1 Transfusion of Nonautologous Red Blood Cells into Peripheral Vein, Percutaneous Approach (ICD-10-PCS; 2024-06-24)
DX: N99.521 Infection of incontinent external stoma of urinary tract (principal); A41.59 Other Gram-negative sepsis; A41.81 Sepsis due to Enterococcus; B37.7 Candidal sepsis; T83.592A Infection and inflammatory reaction due to indwelling ureteral stent, initial encounter; C56.9 Malignant neoplasm of unspecified ovary; C79.9 Secondary malignant neoplasm of unspecified site; D62 Acute posthemorrhagic anemia; N17.9 Acute kidney failure, unspecified; E87.20 Acidosis, unspecified; N13.6 Pyonephrosis; E87.1 Hypo-osmolality and hyponatremia; B37.49 Other urogenital candidiasis; C79.11 Secondary malignant neoplasm of bladder; C79.19 Secondary malignant neoplasm of other urinary organs; K62.5 Hemorrhage of anus and rectum; N82.8 Other female genital tract fistulae; N82.5 Female genital tract-skin fistulae; N82.3 Fistula of vagina to large intestine; Z68.1 Body mass index [BMI] 19.9 or less, adult; T83.032A Leakage of nephrostomy catheter, initial encounter; Y83.3 Surgical operation with formation of external stoma as the cause of abnormal reaction of the patient, or of later complication, without mention of misadventure at the time of the procedure; Y92.009 Unspecified place in unspecified non-institutional (private) residence as the place of occurrence of the external cause; N93.9 Abnormal uterine and vaginal bleeding, unspecified; I95.9 Hypotension, unspecified; E03.9 Hypothyroidism, unspecified; I12.9 Hypertensive chronic kidney disease with stage 1 through stage 4 chronic kidney disease, or unspecified chronic kidney disease; K21.9 Gastro-esophageal reflux disease without esophagitis; E11.22 Type 2 diabetes mellitus with diabetic chronic kidney disease; N18.9 Chronic kidney disease, unspecified; N32.81 Overactive bladder; Z71.3 Dietary counseling and surveillance; Z96.0 Presence of urogenital implants; Z51.5 Encounter for palliative care; Z66 Do not resuscitate; Z79.899 Other long term (current) drug therapy; Z79.2 Long term (current) use of antibiotics
CPT/HCPCS: 36415; 50435; 74176; 74470; 76856; 80053; 81001; 82550; 82948; 83605; 83690; 83880; 84484; 85014; 85018; 85025; 86850; 86900; 86920; 87040; 87070; 87186; 87205; 93005; 94799; 99152; 99252; 99284; C1729; C1769; J0696; J1171; J1450; J2003; J2185; J2250; J2270; J2405; J2470; J2543; J7030; J7050; J7070; P9016; Q9967

== ENCOUNTER → 2024-09-23 | Outpatient (REF) | payer MEDICARE ==
[~2024-09-23] MED LIST changes: +AUGMENTIN 500-1 EACH PO; +DIFLUCAN100 MG PO; +FENTANYL CITRATE/PF 100MCG/2 ML INJ ONE; +IOPAMIDOL 370 MG/ML 100 ML INFUS..BTL INJ ONE; +PANTOPRAZOLE SO40 MG PO; +SODIUM CHLORIDE 0.9% 250ML 500 ML ONE
== END ==
LOC: DX 12:02
PROVIDERS: ATTEND Urology
DX: N13.30 Unspecified hydronephrosis (principal)
CPT/HCPCS: 50435; C1729; C1769; J3010; J7050; Q9967

== ENCOUNTER → 2024-12-30 | Outpatient (REF) | payer MEDICARE ==
[~2024-12-30] MED LIST changes: -FENTANYL CITRATE/PF 100MCG/2 ML INJ ONE; +LIDOCAINE HCL 1% 30ML-PF VIAL ONE; -SODIUM CHLORIDE 0.9% 250ML 500 ML ONE; +SODIUM CHLORIDE 0.9% 500ML 500 ML ONE
== END ==
LOC: DX 08:38
PROVIDERS: ATTEND Urology
DX: N13.30 Unspecified hydronephrosis (principal)
CPT/HCPCS: 50435; C1729; C1769; J2003; J7040; Q9967